=== PATIENT | female | born 1945 | race Caucasian/White ===

== ENCOUNTER 2017-12-17 18:33 | Inpatient (IN) | payer MEDICARE, SELFPAY ==
[2017-12-17] VITALS (12 sets, daily range): BP systolic 95–126; BP diastolic 51–80; PULSE 55–90; RESP 14–20; TEMP 36.2–36.9; O2SAT 16–100; BMI 33.0
--- NOTE | 2017-12-17 | IMM_PTH ---
PATIENT: KD JOLLY LOC: MS3 U#:[id number] AGE/SX: 72/F ROOM: MS306 RE12/17/[address]: Dr. Ivonne Healy MD : 1945 BED: 1 DIS: 12/18/2017 SPEC #: [id number] RECD: 12/21/17 11:42 STATUS: FRANK REQ #: [id number] JAYLYN: 12/17/17 00:[address]: Ivonne Healy DEPT: IMMUNOHISTOCHEMISTRY RECD BY: Madisyn Chavez ENTERED: 12/21/17 11:44 SP TYPE: IMMUNO OTHR DR: Alyx Wu, TURN SEWER-C Tissues: B - Fallopian tube Procedures: Zeus Ret (add) CK20 (add) CK5-6 (add) CK7 (add) CK8 (add) KI-67 (add) P53 (add) CT (add) Vimentin (add) Pankeratin (add) ER (initial) PHYSICIAN & [address] [address] SPECIMEN INFORMATION: Tissue Source: B ? Bilateral fallopian tubes Clinical Info: Vaginal vault prolapse, stress urinary incontinence Specimen Number: [id number] B1 CPT code: 38406, 79047 x10 METHODOLOGY: Deparaffinized sections of prefer/formalin-fixed tissue or PAP/DQ stained slides are incubated with monoclonal/polyclonal antibodies/oligonucleotide probes. Localization is made via biotin free immunoperoxidase method. Appropriate controls are performed and reacted as expected. Results on target cell population are indicated in the following table: RESULTS: ANTIBODY / CLONE RESULT Block B1 ER (6F11) positive CT (1E2) negative AE1-3 (AE1/AE3/PCK26) positive CK7 (OV-TL12/30) positive CK8 (10feazR37) negative CK20 (KS20.8) negative CK5-6 (D5 & 1684) negative Ki-67 (30-9) positive (30 to 40%) P53 (DO-7) positive, diffuse CALRET (polyclonal) negative Vimentin (V9) positive, focal These tests were developed and their performance characteristics determined by [facility]. They may not have been cleared or approved by the U.S. Food and Drug Administration. The FDA has determined that such clearance or approval is not necessary. INTERPRETATION: B. Bilateral fallopian tubes: One fallopian tube (block 1), consists of poorly differentiated adenocarcinoma. See comment. RABIA:talia 12/28/17 Comment: The specimen was sent to [facility] for expert opinion and reviewed by Dr. Avery and above diagnosis rendered. Case has been reviewed in consultation with Dr. Bar who concurs with the above diagnosis. IDC:AM
[2017-12-17] MEDS: Cefazolin 2 GM in 0.9% Normal Saline 100 ML IV (07:00)
[2017-12-17] MEDS: Phenazopyridine 95 MG Tablet 190 MG PO (07:00)
--- NOTE | 2017-12-17 12:02 | EKG12_ITS ---
Test Reason : PRE OP Blood Pressure : / mmHG Vent. Rate : 059 BPM Atrial Rate : 059 BPM P-R Int : 208 ms QRS Dur : 084 ms QT Int : 460 ms P-R-T Axes : 032 006 008 degrees QTc Int : 455 ms Sinus bradycardia Otherwise normal ECG No previous ECGs available Confirmed by SHARMIN DURBIN, TROY ([id number]), purchasing expeditor CITLALLI MUSE ([id number]) on 12/20/2017 2:59:15 PM Referred By: Ivonne Healy Confirmed By:TROY FINNEY MD
--- NOTE | 2017-12-17 13:25 | OV_PTH ---
PATIENT: KD JOLLY LOC: MS3 U#:[id number] AGE/SX: 72/F ROOM: NM306 RE12/17/[address]: Dr. Ivonne Healy MD : 1945 BED: 1 DIS: 12/18/2017 SPEC #: [id number] RECD: 12/17/17 16:06 STATUS: FRANK REJuan #: [id number] JAYLYN: 12/17/17 13:[address]: Ivonne Healy DEPT: SURGICAL PATHOLOGY RECD BY: Govind Byrne ENTERED: 12/20/17 07:29 SP TYPE: OVARY OTHR DR: Alyx Wu, HORTICULTURAL AGENT-C Tissues: A - OVARIAN CYST B - Fallopian tube Procedures: [facility] Consultation (on slides) Surgery Specimen Level II Surgery Specimen Level V HEADER OPERATION: Uterosacral ligament suspension, anterior and posterior PRE-OP DIAGNOSIS: Vaginal vault prolapse, stress urinary incontinence TISSUE SUBMITTED: A. Right ovarian cyst, B. Bilateral fallopian tubes MICROSCOPIC DIAGNOSIS A. Right ovarian cyst: Simple serous cystadenoma. B. Bilateral fallopian tubes: One of the fallopian tube, fimbrial end, Poorly differentiated adenocarcinoma. Second fallopian tube, no pathologic diagnosis. See comment. SJ:talia 12/28/17 COMMENT B. The tumor measures 0.2 x 0.1 cm in greatest dimension (measured microscopically). This case was sent to [facility] for expert opinion and reviewed by Dr. Avery and above diagnosis is rendered. Immunohistochemistry ([id number]) performed here and also additional immunohistochemical stains performed at [facility] supports the above diagnosis. According to Dr. Avery, this tumor primarily represents m?llerian organs (fallopian tube, ovary or uterus). P53 positivity favors serous carcinoma. Complete consult report from [facility] is viewable in patient?s EMR. This case is discussed with Dr. Healy on 12/28/17. Case has been reviewed in consultation with Dr. Bar who concurs with the above diagnosis. IDC:AM MICROSCOPIC DESCRIPTION Slides are reviewed. GROSS DESCRIPTION A - Received in fixative is one container labeled with the patient's name and designated right ovarian cyst. The specimen consists of a escobedo-white collapsed cyst measuring 2.5 x 1.5 x 0.3 cm. The external surface of the cyst is smooth. The specimen is inked, serially sectioned and reveals inner cyst wall is smooth. No cyst contents are identified. The entire specimen is submitted in one cassette. B - Received in fixative is one container labeled with the patient's name and designated bilateral fallopian tubes. The specimen consists of bilateral fallopian tubes. One of the fallopian tubes entirely consists of fimbrial end and measures 1.2 x 1.5 x 0.6 cm. The second fallopian tube also predominantly consists of fimbrial end and measures 2 x 2 x 0.5 cm. A paratubal cyst is noted measuring 1 cm in greatest dimension. The cyst is filled with clear fluid. The entire specimen is submitted in two cassettes as follows: 1 ? fallopian tube consisting only of fimbrial end, 2 ? second fallopian tube and paratubal cyst. / SJ:rg 12/20/17 TC:0 CPT: 00067 x2, 00086
--- NOTE | 2017-12-17 16:43 | PCM.DC.VHY ---
Discharge Activity: Return to Normal Activity May resume sexual activity in: 6 weeks Call your doctor if your incision/area has: Continuous Slow Oozing, Sudden Increased Bleeding, Increased Pain/ Swelling, Increased Redness, Foul Smelling Discharge Call your doctor if you observe: Fever of 101 or Higher, Inability to urinate, Inability to have a bowel movement, Using more than one pad per hour Additional Instructions: A prescription for oxycodone will be provided. However, acetominophen 1000 mg every 8 hours and ibuprofen 800 mg every 8 hours will greatly help control discomfort. You can take the two together or alternate them every 4 hours. Allergies/Adverse Reactions: Allergies codeine Allergy (Verified 12/13/17 10:18) Upset Stomach Sulfa (Sulfonamide Antibiotics) Allergy (Verified 12/13/17 10:) Upset Stomach Medications to take at Discharge Atorvastatin Calcium [Lipitor] 40 mg PO QHS 12/13/17 Cholecalciferol (Vitamin D3) [Vitamin D3] 5,000 unit PO DAILY 12/13/17 Clonazepam [Klonopin] 0.5 mg PO QHS PRN PRN 12/13/17 Cyanocobalamin (Vitamin B-12) [Vitamin B-12] 1,000 mcg PO DAILY 12/13/17 Gabapentin [Neurontin] 300 mg PO BIDCM 12/13/17 Levothyroxine [Synthroid] 75 mcg PO QHS 12/13/17 Medina-3 Fatty Acids/Fish Oil [Fish Oil 1,000 mg Capsule] 1 each PO DAILY 12/13/17 Sertraline HCl [Zoloft] 50 mg PO QHS 12/13/17 Vitamin E 400 unit PO DAILY 12/13/17 Primary Care Physician: Alyx Wu NP-C [Primary Care Provider] - Please Follow Up With: Ivonne Healy MD When: 6 weeks Proposed Discharge Date: 12/17/17
--- NOTE | 2017-12-17 16:48 | PCM.OPRPT ---
Problem List (1) Vaginal vault prolapse after hysterectomy Status: Acute (2) Rectocele Status: Acute (3) Female stress incontinence Status: Acute Report of Operation Date of Procedure: 12/17/17 Pre-Operative Diagnosis: Vaginal vault prolapse, rectocele and female stress incontinence Post-Operative Diagnosis: same Surgery/Procedure Performed:: Uterosacral ligament suspension, anterior and posterior colporrhaphy, bilateral salpingectomy, midurethral sling and cystoscopy Description of Surgical Findings:: No bladder, urethral or rectal injury. stonemason helper: Brigitte Elena Type of Anesthesia:: General Specimen's removed: bilateral fallopian tubes and ovarian cyst Drains: evangelista to pacu Estimated Blood Loss (mL): 200 cc Fluids Replaced: 2500 cc Description of Procedure: The patient was taken to the operating room where general anesthesia was initiated. The patient was placed in dorsal lithotomy position and prepped and draped in sterile fashion. A surgical timeout occurred. A evangelista catheter was placed in the patient's bladder. The vaginal epithelium overlying the anterior vaginal wall was grasped with two Allis clamps, injected with 0.25% Marcaine with epinephrine and a midline incision was made over the herniation of the anterior vaginal wall. The underlying pubocervical fascia was dissected off the overlying vaginal epithelium until the herniation of the pubocervical fascia was completely exposed. Hemostasis was achieved with electrosurgical cautery. The herniation was repaired in the traditional fashion using imbricating horizontal mattress sutures of 2-O PDS on a CT-1 needle. Both fallopian tubes were removed with bovie electocautery as well as a right ovarian cyst. They were sent to pathology. With two Breisky Navratil retractors placed anteriorly and posteriorly in the vagina, the bowel was packed out of the cul-de-sac using a moist Kerlex sponge. A 0-Maxon with an HGU-46 needle on a long needle student truck driver was passed through the uterosacral ligament on the patients right side. This was followed by a 2-0 prolene suture using an SH needle. This was repeated on the contralateral side. The instruments and packing were removed from the vagina. The patient was given 5 mg of Lasix IV and 5 cc of Indigo [place]. Cystoscopy was then performed while holding tension on the uterosacral ligament suspensions sutures. Bilateral efflux of blue urine was seen from ureteral orifices. Once the hernation was completely repaired, the redundant vaginal epithelium was excised and the incision was closed with a running, locking 3-O vicryl suture. Excellent hemostasis was noted. The sutures were then bought through the corners of the vaginal cuff. The cuff was closed with interrupted 0-vicryl sutures. The uterosacral ligament sutures were then tied, elevating the vaginal vault. A self-retaining retractor was used to retract the labia and vagina for adequate visualization and exposure. The vaginal epithelium overlying the posterior vaginal wall was grasped with two Allis clamps, injected with 0.25% Marcaine with epinephrine and a midline incision was made over the herniation of the posterior vaginal wall. The underlying rectovaginal fascia was dissected off the overlying vaginal epithelium until the herniation of the rectovaginal fascia was completely exposed. Hemostasis was achieved with electrosurgical cautery. With placement of a rectal finger, the herniation was repaired in the traditional fashion using imbricating horizontal mattress sutures of 2-O PDS on a CT-1 needle. Once the hernation was completely repaired, the redundant vaginal epithelium was excised and the incision was closed with a running, locking 3-O vicryl suture. Excellent hemostasis was noted. The vaginal epithelium overlying the mid-urethra was grasped with two Allis clamps, injected with 0.25% Marcaine with epinephrine and a 1.5 cm midline incision was made over the mid urethra using a 15 blade scalpel. Tunnels were dissected bilaterally to the pubic rami and the Bettina Desera trocars were passed through the tunnels on the right side, through the space of Retzius and out the skin at at the pubic symphysis. This was repeated on the patient's left side. Cystoscopy was performed and there was no evidence of bladder or urethral injury. The sling was then drawn up through the space of Retzius and out the skin at the pubic symphysis. Tension was adjusted by placing a Wangensteen forceps between the sling and the urethra. Once adequate tension was adjusted, the plastic sheaths were removed. The redundant sling was trimmed at the skin edges and the skin was repaired with Indermil. The vaginal epithelium was repaired with a running 3-0 Vicryl suture. Anesthesia was discontinued. All needle, instrument, and sponge counts were correct x 2. The patient was taken to recovery room in stable condition. Grafts/Implants Used: Bettina Desera Sling - Complications None - Admit VTE Documentation VTE Present on Admission: No VTE Mechan Device Prophylaxis: SCD's VTE Pharm Prophylaxis ordered?: No
--- NOTE | 2017-12-17 16:51 | OP.PCM_ITS ---
Problem List (1) Vaginal vault prolapse after hysterectomy Status: Acute (2) Rectocele Status: Acute (3) Female stress incontinence Status: Acute Report of Operation Date of Procedure: 12/17/17 Pre-Operative Diagnosis: Vaginal vault prolapse, rectocele and female stress incontinence Post-Operative Diagnosis: same Surgery/Procedure Performed:: Uterosacral ligament suspension, anterior and posterior colporrhaphy, bilateral salpingectomy, midurethral sling and cystoscopy Description of Surgical Findings:: No bladder, urethral or rectal injury. electronic news gathering editor: Brigitte Elena Type of Anesthesia:: General Specimen's removed: bilateral fallopian tubes and ovarian cyst Drains: evangelista to pacu Estimated Blood Loss (mL): 200 cc Fluids Replaced: 2500 cc Description of Procedure: The patient was taken to the operating room where general anesthesia was initiated. The patient was placed in dorsal lithotomy position and prepped and draped in sterile fashion. A surgical timeout occurred. A evangelista catheter was placed in the patient's bladder. The vaginal epithelium overlying the anterior vaginal wall was grasped with two Allis clamps, injected with 0.25% Marcaine with epinephrine and a midline incision was made over the herniation of the anterior vaginal wall. The underlying pubocervical fascia was dissected off the overlying vaginal epithelium until the herniation of the pubocervical fascia was completely exposed. Hemostasis was achieved with electrosurgical cautery. The herniation was repaired in the traditional fashion using imbricating horizontal mattress sutures of 2-O PDS on a CT-1 needle. Both fallopian tubes were removed with bovie electocautery as well as a right ovarian cyst. They were sent to pathology. With two Breisky Navratil retractors placed anteriorly and posteriorly in the vagina, the bowel was packed out of the cul-de-sac using a moist Kerlex sponge. A 0-Maxon with an HGU-46 needle on a long needle shuttle truck driver was passed through the uterosacral ligament on the patients right side. This was followed by a 2- 0 prolene suture using an SH needle. This was repeated on the contralateral side. The instruments and packing were removed from the vagina. The patient was given 5 mg of Lasix IV and 5 cc of Indigo [place]. Cystoscopy was then performed while holding tension on the uterosacral ligament suspensions sutures. Bilateral efflux of blue urine was seen from ureteral orifices. Once the hernation was completely repaired, the redundant vaginal epithelium was excised and the incision was closed with a running, locking 3-O vicryl suture. Excellent hemostasis was noted. The sutures were then bought through the corners of the vaginal cuff. The cuff was closed with interrupted 0-vicryl sutures. The uterosacral ligament sutures were then tied, elevating the vaginal vault. A self-retaining retractor was used to retract the labia and vagina for adequate visualization and exposure. The vaginal epithelium overlying the posterior vaginal wall was grasped with two Allis clamps, injected with 0.25% Marcaine with epinephrine and a midline incision was made over the herniation of the posterior vaginal wall. The underlying rectovaginal fascia was dissected off the overlying vaginal epithelium until the herniation of the rectovaginal fascia was completely exposed. Hemostasis was achieved with electrosurgical cautery. With placement of a rectal finger, the herniation was repaired in the traditional fashion using imbricating horizontal mattress sutures of 2-O PDS on a CT-1 needle. Once the hernation was completely repaired , the redundant vaginal epithelium was excised and the incision was closed with a running, locking 3-O vicryl suture. Excellent hemostasis was noted. The vaginal epithelium overlying the mid-urethra was grasped with two Allis clamps, injected with 0.25% Marcaine with epinephrine and a 1.5 cm midline incision was made over the mid urethra using a 15 blade scalpel. Tunnels were dissected bilaterally to the pubic rami and the Bettina Desera trocars were passed through the tunnels on the right side, through the space of Retzius and out the skin at at the pubic symphysis. This was repeated on the patient's left side. Cystoscopy was performed and there was no evidence of bladder or urethral injury. The sling was then drawn up through the space of Retzius and out the skin at the pubic symphysis. Tension was adjusted by placing a Wangensteen forceps between the sling and the urethra. Once adequate tension was adjusted, the plastic sheaths were removed. The redundant sling was trimmed at the skin edges and the skin was repaired with Indermil. The vaginal epithelium was repaired with a running 3-0 Vicryl suture. Anesthesia was discontinued. All needle, instrument, and sponge counts were correct x 2. The patient was taken to recovery room in stable condition. Grafts/Implants Used: Bettina Desera Sling - Complications None - Admit VTE Documentation VTE Present on Admission: No VTE Mechan Device Prophylaxis: SCD's VTE Pharm Prophylaxis ordered?: No
[2017-12-17] MEDS: Ondansetron 4 MG/2 ML Vial (17:39)
[2017-12-17] MEDS: oxyCODONE 5 MG Tablet PO (17:40)
[2017-12-17] MEDS: Lactated Ringers 1,000 ML 75 ML IV (18:15)
[2017-12-17] MEDS: Gabapentin 300 MG Capsule PO (20:51)
[2017-12-17] MEDS: Ketorolac 15 MG/ML Vial IV (20:51)
--- NOTE | 2017-12-17 21:00 | NURSING ---
completed voiding trail. 250ml NS placed into bladder through evangelista and then removed evangelista. Pt up to bathroom and voided 250cc urine. pt assisted back to bed, tolerated well.
[2017-12-17] MEDS: Acetaminophen 500 MG Tablet 1000 MG PO (22:49)
[2017-12-17] MEDS: Sertraline 50 MG Tablet PO (22:49)
[2017-12-17] MEDS: Atorvastatin Calcium 40 MG Tablet PO (22:49)
[2017-12-18] VITALS (8 sets, daily range): BP systolic 87–98; BP diastolic 48–60; PULSE 64–103; RESP 14–18; TEMP 36.6–37.2; O2SAT 92–97
[2017-12-18] MEDS: Ketorolac 15 MG/ML Vial IV ×3 (00:38→12:03)
[2017-12-18] MEDS: Acetaminophen 500 MG Tablet 1000 MG PO (05:37)
[2017-12-18] MEDS: Levothyroxine 75 MCG Tablet PO (05:37)
[2017-12-18] MEDS: Lactated Ringers 1,000 ML 75 ML IV (05:37)
--- NOTE | 2017-12-18 07:14 | PCM.PN.OB ---
Patient Problems: Active and Suspected Problems Vaginal vault prolapse after hysterectomy (Acute) Rectocele (Acute) Female stress incontinence (Acute) Subjective: doing well no complaints other than some dizziness upon ambulation. no CP SOB N V had one panic attack last night but controlled - Physical Exam General: Alert, Oriented x3 Vital Signs Temp Pulse Resp BP Pulse Ox 98.8 F 83 18 89/49 L 97 12/18/17 06:50 12/18/17 06:50 12/18/17 06:50 12/18/17 06:50 12/18/17 06:50 Oxygen Flow Rate (L/min) 2 Oxygen Delivery Method Room Air Weight: 198 lb 10.184 oz Body Mass Index (BMI) 33.0 Intake and Output for Last 24 Hours 12/16/17 12/17/17 12/18/17 23:59 23:59 23:59 Intake Total 3000 / 3000 1287 / 1287 Output Total 325 / 325 750 / 750 Balance 2675 / 2675 537 / 537 Medical Necessity - Tobacco Use Smoking Status: Former smoker Tobacco Use: Cigarettes Assessment/Plan Active and Suspected Problems Vaginal vault prolapse after hysterectomy (Acute) Rectocele (Acute) Female stress incontinence (Acute) s/p pelvic support repair ambulate, give IVF bolus and increase po intake, stat cbc due to low bps but suspect dehydration. dc home today
[2017-12-18 08:01] LABS: Absolute Lymphocyte Count 1.79 X10^3/ul (0.83-4.51); Absolute Neutrophil Count 15.2 X10^3/uL (2.0-7.7); Basophil# 0.01 X10^3/uL; Basophil% 0.1 % (0-1); Hematocrit 33.5 % (37-47); Hemoglobin 10.8 g/dl (12.0-15.0); Lymphocyte # 1.79 X10^3/ul (4.0); Lymphocyte % 9.4 % (19-41); Mean Corp Hgb Conc 32.2 g/gl (32-36); Mean Corpuscular Hgb 27.8 pg (27.0-32.0); Mean Corpuscular Volume 86.1 fL (81-99); Monocyte# 2.06 X10^3/uL; Monocyte% 10.8 % (0-10); Neutrophil # 15.15 X10^3/uL (2.7-7.7); Neutrophil % 79.5 % (47-70); Platelet Count 212 K/mm3 (150-450); RBC Distribution Width CV 13.4 % (11.6-14.6); RBC Distribution Width SD 42.5 fl (35.1-43.9); Red Blood Count 3.89 M/mm3 (4.2-5.4)
[2017-12-18 08:03] LABS: Differential Indicated SCAN CRITERIA MET; POSITIVE COUNT NO; POSITIVE DIFFERENTIAL YES; POSITIVE MORPHOLOGY NO
[2017-12-18 08:27] LABS: Hypochromasia 1+
[2017-12-18] MEDS: Gabapentin 300 MG Capsule PO (08:57)
[2017-12-18] MEDS: Cyanocobalamin 500 MCG Tablet 1000 MCG PO (08:57)
[2017-12-18] MEDS: Vitamin E 400 UNITS Capsule PO (08:58)
[2017-12-18] MEDS: oxyCODONE 5 MG Tablet PO (09:01)
[2017-12-18] MEDS: 0.9% NaCl Peripheral Flush Adult/Peds IV (12:09)
[2017-12-20 12:10] LABS: Pathologist Review Reviewed
== END 2017-12-18 13:07 | disposition home or self-care (01) | DRG 743 ==
LOC: MS3 18:36 → SDC 12-20 09:49
PROVIDERS: Obstetrics & Gynecology; Admitting Provider Obstetrics & Gynecology; Family Provider Nurse Practitioner Family; PCP Nurse Practitioner Family; Visit Provider Obstetrics & Gynecology
PROC: 0USG7ZZ Reposition Vagina, Via Natural or Artificial Opening (ICD-10-PCS; CPT 57260; principal; 2017-12-17 13:10)
DX: N99.3 Prolapse of vaginal vault after hysterectomy (principal); N39.3 Stress incontinence (female) (male); I95.9 Hypotension, unspecified; D27.0 Benign neoplasm of right ovary; C57.00 Malignant neoplasm of unspecified fallopian tube; E03.9 Hypothyroidism, unspecified; F32.9 Major depressive disorder, single episode, unspecified; F41.9 Anxiety disorder, unspecified; I25.10 Atherosclerotic heart disease of native coronary artery without angina pectoris; E78.00 Pure hypercholesterolemia, unspecified; Z87.891 Personal history of nicotine dependence; Z79.899 Other long term (current) drug therapy
CPT/HCPCS: 85025; 88302; 88305; 88307; 88325; 88341; 88342; 93005; 97802; J7120; A4216; C1771; J1940; J2405

== ENCOUNTER → 2019-06-20 15:47 | Outpatient (CLI) | payer MEDICARE, SELFPAY ==
[2017-12-17 19:03] VITALS: BMI 33.0
--- NOTE | 2019-06-20 16:23 | EKG12_ITS ---
Test Reason : PRE OP Blood Pressure : / mmHG Vent. Rate : 057 BPM Atrial Rate : 057 BPM P-R Int : 200 ms QRS Dur : 078 ms QT Int : 452 ms P-R-T Axes : 037 001 006 degrees QTc Int : 439 ms Sinus bradycardia Pooor R-wave progression Confirmed by JB DURBIN, MICHELLE ([id number]), desk editor SARAI GUEVARA ([id number]) on 06/21/2019 2:15:24 PM Referred By: Cecil Moran Confirmed By:MICHELLE MUHAMMAD MD
[2019-06-20 16:35] LABS: Hematocrit 46.6 % (37-47); Hemoglobin 14.9 g/dL (12.0-15.0); Mean Corpuscular Hgb 28.2 pg (27.0-32.0); Mean Corpuscular Volume 88.1 fL (81-99); Mean Platelet Vol. 11.1 fl (6.2-12.0); Platelet Count 268 K/mm3 (150-450); RBC Distribution Width CV 12.4 % (11.6-14.6); Red Blood Count 5.29 M/mm3 (4.2-5.4); White Blood Count 9.2 K/mm3 (4.4-11.0)
[2019-06-20 16:52] LABS: Anion Gap 7 (5-15); BUN 16 mg/dL (7-18); BUN/Creat Ratio 18.4 RATIO (10-20); Calcium,Total 9.6 mg/dL (8.5-10.1); Chloride 107 mmol/L (98-107); Creatinine, Serum 0.87 mg/dL (0.55-1.02); EST Glomerular Filtration Rate 67 mL/min (>60); Est Glom Filt Rate - Afr Amer 81 mL/min (>60); Glucose 91 mg/dL (74-106); Sodium Level 141 mmol/L (136-145)
== END ==
PROVIDERS: Family Provider Nurse Practitioner Family; PCP Nurse Practitioner Family; Referring Provider Physician Assistant; Visit Provider Physician Assistant
DX: Z01.818 Encounter for other preprocedural examination (principal)
CPT/HCPCS: 36415; 80048; 85027; 93005

== ENCOUNTER → 2024-09-06 | Outpatient (CLI) | payer MEDICARE, SELFPAY ==
--- NOTE | 2024-09-06 17:50 | RAD_ITS ---
EXAM: XR Right Hip With Pelvis When Performed, 2 or 3 Views CLINICAL INDICATION: TECHNIQUE: Two or three views of the right hip with pelvis when performed. COMPARISON: No relevant prior studies available. FINDINGS: BONES/JOINTS: Mild degenerative changes of the right hip joint. No acute fracture. No dislocation. SOFT TISSUES: Unremarkable. RAD/HIP, UNI W/ Pelvis 2-3 Views IMPRESSION: Degenerative changes as above. Reading Location: [facility]
--- NOTE | 2024-09-06 17:50 | RAD_ITS ---
PROCEDURE: Lumbar spine radiographs REASON FOR EXAM: Pain TECHNIQUE: Three views of the lumbar spine COMPARISON: None. FINDINGS: See impression RAD/Lumbar Spine 2 or 3 Views IMPRESSION: Mild/moderate dextroscoliosis. Vertebral body heights are within normal limits . Mild/moderate multilevel disc space narrowing. Tcja-qk-quuetroq multilevel facet arthropathy, greatest from L4 through S1. 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 Reading Location: [facility]
== END | disposition home or self-care (01) ==
LOC: RAD 17:24
PROVIDERS: PCP Nurse Practitioner Family; Referring Provider Nurse Practitioner Family; Visit Provider Nurse Practitioner Family
DX: I49.9 Cardiac arrhythmia, unspecified (principal); M25.551 Pain in right hip
CPT/HCPCS: 72100; 73502

== ENCOUNTER → 2024-09-12 | Outpatient (CLI) | payer MEDICARE, SELFPAY ==
--- NOTE | 2024-09-12 10:32 | EKG12_ITS ---
Test Reason : IRREGULAR HEART BEAT Blood Pressure : */* mmHG Vent. Rate : 75 BPM Atrial Rate : 75 BPM P-R Int : 180 ms QRS Dur : 74 ms QT Int : 384 ms P-R-T Axes : -17 1 17 degrees QTcB Int : 428 ms Sinus rhythm with Premature atrial complexes Otherwise normal ECG Confirmed by Sherwin Reed ([id number]), story editor ALICIA AYALA ([id number]) on 09/13/2024 6:55:35 AM Referred By: Alyx Wu Confirmed By: Sherwin Reed
== END | disposition home or self-care (01) ==
PROVIDERS: PCP Nurse Practitioner Family; Referring Provider Nurse Practitioner Family; Visit Provider Nurse Practitioner Family
DX: I49.9 Cardiac arrhythmia, unspecified (principal); M25.551 Pain in right hip
CPT/HCPCS: 93005

== ENCOUNTER → 2024-10-05 | Outpatient (CLI) | payer MEDICARE, SELFPAY | END | disposition home or self-care (01) | LOC: PSN 12:32 | PROVIDERS: PCP Nurse Practitioner Family; Referring Provider Nurse Practitioner Family; Visit Provider Nurse Practitioner Family | DX: R06.02 Shortness of breath (principal); I25.10 Atherosclerotic heart disease of native coronary artery without angina pectoris; R07.89 Other chest pain; I34.1 Nonrheumatic mitral (valve) prolapse; R00.2 Palpitations | CPT/HCPCS: 93225; 93226 ==

== ENCOUNTER → 2024-10-26 | Outpatient (CLI) | payer MEDICARE, SELFPAY ==
--- NOTE | 2024-10-26 13:07 | ECHOD_ITS ---
Reason For Study Reason For Study: SOB Procedure This was a 2D Doppler, Color Flow transthoracic echocardiogram. Exam performed in department. Left Ventricle Normal LV size. Left ventricular systolic function is normal. The left ventricular ejection fraction is 55 %. No regional wall motion abnormalities noted. Right Ventricle Normal RV size. Normal systolic function. Atria Normal left atrium. Normal right atrium. Mitral Valve Normal mitral valve. Mild (1+) mitral valve insufficiency. Tricuspid Valve Normal tricuspid valve. Mild (1+) tricuspid valve insufficiency. Pulmonary artery systolic pressure is 26 mmHg. Aortic Valve Trisinus/trileaflet aortic valve. Mild (1+) aortic valve insufficiency. Pulmonic Valve Normal pulmonic valve. Great Vessels Normal aortic root. The pulmonary artery is normal size. Inferior vena cava collapse with respiration. Pericardium/Pleural No pericardial effusion. MMode/2D Measurements & Calculations LVIDd: 4.5 cm IVSd: 1.1 cm Ao root diam: 3.6 cm LVIDs: 3.0 cm LVPWd: 1.1 cm RVDd: 3.2 cm FS: 33.0 % LAV(MOD-bp): 51.3 ml LVAd ap4: 22.8 cm2 LVAd ap2: 18.9 cm2 LAV(MOD-bp) Indexed: 27.1 ml/m2 LVLd ap4: 7.2 cm LVLd ap2: 6.9 cm LAV(MOD-sp2): 52.9 ml EDV(MOD-sp4): 62.6 ml EDV(MOD-sp2): 43.8 ml LAV(MOD-sp4): 49.5 ml EDV(sp4-el): 61.8 ml EDV(sp2-el): 44.4 ml LVAs ap4: 12.6 cm2 LVAs ap2: 11.9 cm2 LVLs ap4: 6.2 cm LVLs ap2: 6.4 cm ESV(MOD-sp4): 23.7 ml ESV(MOD-sp2): 19.7 ml ESV(sp4-el): 21.7 ml ESV(sp2-el): 18.7 ml EF(MOD-sp4): 62.1 % EF(MOD-sp2): 55.1 % EF(sp4-el): 64.9 % SV(MOD-sp4): 38.9 ml SV(MOD-sp2): 24.1 ml SV(sp4-el): 40.1 ml SI(MOD-sp4): 20.5 ml/m2 SI(MOD-sp2): 12.7 ml/m2 LA A4 area: 18.5 cm2 LA dimension(2D): 4.0 cm RA A4 area: 13.2 cm2 TAPSE: 1.7 cm Time Measurements MV dec time: 0.27 sec Doppler Measurements & Calculations MV E max jonny: 62.7 cm/sec Lat Peak E' Jonny: 9.7 cm/sec Med Peak E' Jonny: 5.1 cm/sec MV A max jonny: 79.4 cm/sec E/E' lat: 6.5 E/E' med: 12.3 MV E/A: 0.79 Ao V2 max: 136.2 cm/sec AI max jonny: 339.7 cm/sec MV dec slope: 232.8 cm/sec2 Ao max P.4 mmHg AI max P.2 mmHg Ao V2 mean: 93.0 cm/sec Ao mean P.0 mmHg AI dec slope: 131.9 cm/sec2 Ao V2 VTI: 29.2 cm AI P1/2t: 754.5 msec AV (velocity ratio): 0.82 LV V1 max: 111.7 cm/sec PA V2 max: 112.2 cm/sec TR max jonny: 234.3 cm/sec LV V1 max P.0 mmHg TR max P.0 mmHg LV V1 mean P.8 mmHg LV V1 mean: 79.8 cm/sec LV V1 VTI: 24.0 cm ECHO/Echo Complete Interpretation Summary Normal LV size. Left ventricular systolic function is normal. The left ventricular ejection fraction is 55 %. Mild (1+) mitral valve insufficiency. Mild (1+) aortic valve insufficiency. Pulmonary artery systolic pressure is 26 mmHg. Ordering Physician: Alyx Wu Referring Physician: Alyx Wu Performed By: Robyn Clark RDCS
== END | disposition home or self-care (01) ==
PROVIDERS: PCP Nurse Practitioner Family; Referring Provider Nurse Practitioner Family; Visit Provider Nurse Practitioner Family
DX: R06.02 Shortness of breath (principal)
CPT/HCPCS: 93306

== ENCOUNTER → 2025-05-29 | Outpatient (CLI) | payer MEDICARE, SELFPAY ==
--- NOTE | 2025-05-29 11:33 | STRESSREP_ITS ---
Stress Test Report
--- NOTE | 2025-05-29 11:33 | STRESSREP ---
Stress Test Report Date: 05/29/2025 Procedure: Pharmacologic stress nuclear imaging study Indications: Chest pain Consent: Per the patient Procedure: The patient underwent pharmacologic (Regadenoson 0.4mg ) evaluation with a peak heart rate of 90 beats per minute (64% predicted maximal heart rate) and a peak blood pressure of 162/82 mmHg. The baseline ECG demonstrated sinus rhythm. The peak pharmacologic ECG did not show any ischemic changes. Occasional PACs noted. There was no complaint of chest discomfort during pharmacologic infusion or recovery. The patient was injected with 11.6 millicuries of technetium 99m Cardiolite and subsequently rest SPECT Cardiolite nuclear imaging was obtained in the horizontal long, vertical long, and short axis views. The patient underwent pharmacologic (Regadenoson) evaluation. The patient was injected with 33.7 millicuries of technetium 99m Cardiolite and subsequently stress SPECT Cardiolite nuclear imaging was obtained in the horizontal long, vertical long, and short axis views. A gated Cardiolite study at peak stress was obtained. The examination was stopped secondary to completion of protocol. Rest and stress SPECT Cardiolite nuclear imaging status post realignment, normalization, and attenuation correction demonstrate no fixed or reversible perfusion defects. There is end systolic thickening and brightening. The gated Cardiolite study demonstrates myocardial thickening and inward wall motion. The reported LVEF is 64%. Impression: 1. Pharmacologic (Regadenoson) evaluation 2. Peak pharmacologic ECG with no diagnostic changes. 3. Occasional PACs noted. 5. Rest and stress SPECT Cardiolite nuclear imaging demonstrate relative uniform tracer uptake and myocardial perfusion appearing within normal limits. 6. The gated Cardiolite study reports an LVEF of 64%. This note was generated with nubeloation software. It may contain incorrect words, spelling, and punctuation that were not noted in checking the note before signing.
== END | disposition home or self-care (01) ==
LOC: CVS 06:36
PROVIDERS: PCP Nurse Practitioner Family; Referring Provider Internal Medicine Cardiovascular Disease; Visit Provider Internal Medicine Cardiovascular Disease
DX: R07.9 Chest pain, unspecified (principal)
CPT/HCPCS: 78452; 93017; A9500; A4216; J2785